=== PATIENT | male | born 1975 | race African-American/Black ===

== ENCOUNTER 2016-11-23 20:56 | Emergency (ER) | payer OTHER ==
[~2016-11-23] VITALS: Ht 182.9 cm; Wt 170.1 kg
[~2016-11-23 20:56] MED LIST: NEXIUM 40MG40 MG PO
--- NOTE | 2016-11-23 21:39 | ED GENERAL ADULT ---
History of Present Illness General Chief Complaint: Dyspnea (COPD, CHF, Other) Stated Complaint: SOB Source: patient, family Exam Limitations: no limitations Vital Signs & Intake/Output Vital Signs & Intake/Output Vital Signs Date Time Temp Pulse Resp B/P Pulse O2 O2 Flow FiO2 Ox Delivery Rate 11/24 0129 97.9 82 18 161/79 98 Room Air 11/23 2309 95 Room Air 11/23 2308 98.0 95 16 156/85 95 Room Air 11/23 2110 97.0 112 20 155/105 95 Room Air ED Intake and Output 11/24 0000 11/23 1200 Intake Total Output Total Balance Patient 375 lb Weight Allergies Coded Allergies: Penicillins (Severe, ANAPHALACTIC 11/23/16) shellfish derived (Severe, HIVES, DIFF BREATHING 11/23/16) Reconcile Medications Esomeprazole (Nexium) 40 MG CAP 1 CAP PO DAILY reflux Triage Note: TRIAGE: PT TO ER C/C "I FELT LIKE I WAS COMING DOWN WITH FEVER Tuesday. AROUND 1 OR 2 AM TUESDAY MORNING MY CHEST WAS REALLY TIGHT AND IT FELT LIKE I WAS ABOUT TO PASS OUT. I WOKE UP ON THE GROUND. I WAS PROBABLY DOWN FOR A COUPLE SECONDS. STARTED TO FEEL BETTER TUESDAY AND TUESDAY BUT TODAY STARTED TO FEEL WEAK" AND FEELING LIKE HE FELT ON TUESDAY SO DECIDED TO COME TO ER. R/A SATS WNL, SPEAKING IN COMPLETE SENTENCES AT TRIAGE. Triage Nurses Notes Reviewed? yes HPI: Patient started on Tuesday feeling like he was coming down with a viral URI. Subjective fevers and chills. Nonproductive cough. Patient then states that he got substernal chest tightness. The tightness lasted a few hours. Patient was sitting at the kitchen table and suddenly felt very tired and put his head down and passed out for 1-2 minutes per his . Patient then got up and was feeling better so went to bed and woke up Tuesday morning feeling fine. Patient felt normal until earlier this afternoon when again he developed chills and subjective fevers and has been having the substernal tightness feeling again. The tightness comes on and will last a few hours and go away on its own. There are no aggravating or mitigating factors. There is no radiation while he has it. Currently the pain is 4 out of 10. Patient denies Shortness of breath. There is no diaphoresis. There is no nausea or vomiting. Past History Travel History Traveled to [place] past 21 day No Medical History Any Pertinent Medical History? see below for history Neurological: NONE EENT: NONE Cardiovascular: NONE Respiratory: NONE Gastrointestinal: peptic ulcer disease Hepatic: NONE Renal: NONE Musculoskeletal: chronic back pain, R TORN MENISCUS Psychiatric: NONE Endocrine: NONE Blood Disorders: NONE Cancer(s): NONE SOAP GRINDER/Reproductive: NONE Other Medical Hx: Obesity Surgical History Surgical History: non-contributory, N Psychosocial History What is your primary language Belarusian Tobacco Use: Current Not Daily Daily Tobacco Use Amount/Type: Cigar or Pipe use daily ETOH Use: occasional use Illicit Drug Use: denies illicit drug use Family History Hx Contributory? No Review of Systems Review of Systems Constitutional: Reports: see HPI, chills, fever. EENTM: Reports: no symptoms. Respiratory: Reports: see HPI, cough. Cardiovascular: Reports: see HPI, chest pain. GI: Reports: no symptoms. Genitourinary: Reports: no symptoms. Musculoskeletal: Reports: no symptoms. Skin: Reports: no symptoms. Neurological/Psychological: Reports: no symptoms. Hematologic/Endocrine: Reports: no symptoms. Immunologic/Allergic: Reports: no symptoms. All Other Systems: Reviewed and Negative Physical Exam Physical Exam General Appearance: well developed/nourished, alert, awake, mild distress Head: atraumatic, normal appearance Eyes: Bilateral: PERRL, EOMI. Ears, Nose, Throat: normal pharynx, normal ENT inspection, hearing grossly normal Neck: normal inspection, supple, full range of motion Respiratory: normal breath sounds, chest non-tender, no respiratory distress, lungs clear Cardiovascular: regular rate/rhythm, normal peripheral pulses Gastrointestinal: normal bowel sounds, soft, non-tender, no organomegaly Back: normal inspection, normal range of motion Extremities: normal inspection, normal capillary refill, normal range of motion, no edema Neurologic/Psych: no motor/sensory deficits, awake, alert, oriented x 3, normal gait, normal mood/affect Skin: intact, normal color, warm/dry Core Measures ACS in differential dx? Yes ASA ordered for poss ACS? Yes-ordered, No-ACS ruled out CVA/TIA Diagnosis: No Severe Sepsis Present: No Septic Shock Present: No Progress Differential Diagnoses I considered the following diagnoses in my evaluation of the patient: [AMI, ELECTROLYTE ABNORMALITY, DYSRRHYTHMIA, INFLUENZA, PE] Plan of Care: Orders Procedure Date/time Status TROPONIN LEVEL 11/24 55 Complete EKG 11/24 55 Active D-DIMER 11/23 2137 Complete Telemetry/Taper Operator 11/23 2125 Active RAPID VIRAL INFLUENZA A 11/23 2125 Complete TROPONIN LEVEL 11/23 2125 Complete COMPREHENSIVE METABOLIC PANEL 11/23 2125 Complete CBC WITHOUT DIFFERENTIAL 11/23 2125 Complete EKG 11/23 2125 Active Laboratory Tests 11/24/16 0111: Troponin I < 0.01 11/23/162149: Anion Gap 10, Estimated GFR > 60, BUN/Creatinine Ratio 13.3, Glucose 125 H, Calcium 9.1, Total Bilirubin 0.5, AST 46, ALT 51, Alkaline Phosphatase 73, Troponin I < 0.01, Total Protein 7.7, Albumin 4.1, Globulin 3.6, Albumin/ Globulin Ratio 1.1, D-Dimer 241 H, CBC w Diff NO MAN DIFF REQ, RBC 4.85, MCV 91.6, MCH 29.6, RDW 14.8 H, MPV 7.9, Gran % 49.4, Lymphocytes % 28.9, Monocytes % 14.4 H, Eosinophils % 6.9 H, Basophils % 0.4, Absolute Granulocytes 2.7, Absolute Lymphocytes 1.6, Absolute Monocytes 0.8 H, Absolute Eosinophils 0.4, Absolute Basophils 0, PUBS MCHC 32.3 L Diagnostic Imaging: Viewed by Me: Radiology Read. Discussed w/RAD: Radiology Read. CXR Impression: PATIENT: JARAD HIDALGO PRESENT AGE: 41 PATIENT ACCOUNT NO: [id number] : 74 LOCATION: [facility] ORDERING PHYSICIAN: SEBAS MEJIA MD SERVICE DATE: 11/23/16 EXAM TYPE: RAD - XRY- PORTABLE CHEST XRAY EXAMINATION: XR PORTABLE CHEST CLINICAL INFORMATION: Cough. COMPARISON: None. TECHNIQUE: Portable view of the chest was obtained. 9:45 PM FINDINGS: No significant abnormality is noted involving the heart, lungs, mediastinum, bony thorax or soft tissues. IMPRESSION: Unremarkable examination. DICTATED BY: RYAN WOLFE MD DATE/TIME DICTATED:11/23/162203 COUNTER CLERK :ROBERT DATE/TIME TRANSCRIBED:11/23/162203 CONFIDENTIAL, DO NOT COPY WITHOUT APPROPRIATE AUTHORIZATION. <Electronically signed in Other Vendor System> SIGNED BY: RYAN WOLFE MD 11/23/16 5838 Initial ED EKG: NSR, nonspecific ST T wave chg Repeat EKG: unchanged Rhythm Strip: normal sinus rhythm Comments: Patient states that prior to passing out on Tuesday he took 100 mg of Benadryl to help with the sinus congestion that he been having. Departure Departure Disposition: HOME OR SELF CARE Condition: Stable Clinical Impression Primary Impression: Chest pain, unspecified Secondary Impressions: Bronchitis Referrals: BETHANIE PERERA MD (PCP/Family) AURE RIVERA,Aniceto PEDERSEN Additional Instructions: RETURN IF SYMPTOMS WORSEN OR FOR ANY CONCERNS Departure Forms: Customer Survey General Discharge Information Critical Care Note Critical Care Note Critical Care Time: non-applicable
[2016-11-23 22:01] LABS: ABSOLUTE BASOPHIL COUNT 0 /CUMM (0.0-0.2); ABSOLUTE EOSINOPHIL COUNT 0.4 /CUMM (0.0-0.7); ABSOLUTE GRANULOCYTE CT 2.7 /CUMM (1.4-6.5); ABSOLUTE LYMPH COUNT 1.6 /CUMM (1.2-3.4); ABSOLUTE MONOCYTE COUNT 0.8 /CUMM (0.10-0.60); BASOPHIL % 0.4 % (0.0-2.0); EOSINOPHIL % 6.9 % (0-5); GRANULOCYTE % 49.4 % (42.2-75.2); HEMATOCRIT 44.4 % (42-52); MEAN CORPUSCULAR HGB 29.6 PG (27.0-31.0); MEAN CORPUSCULAR HGB CONC 32.3 G/DL (33.0-37.0); MEAN CORPUSCULAR VOLUME 91.6 FL (80.0-94.0); MEAN PLATELET VOLUME 7.9 FL (7.4-10.4); PLATELET COUNT 218 /CUMM (130-400); RBC DISTRIBUTION WIDTH 14.8 % (11.5-14.5); RED BLOOD CELL CT 4.85 /CUMM (4.70-6.10); WHITE BLOOD CELL COUNT 5.5 /CUMM (4.8-10.8)
--- NOTE | 2016-11-23 22:08 | RADIOLOGY REPORT ---
EXAMINATION: XR PORTABLE CHEST CLINICAL INFORMATION: Cough. COMPARISON: None. TECHNIQUE: Portable view of the chest was obtained. 9:45 PM FINDINGS: No significant abnormality is noted involving the heart, lungs, mediastinum, bony thorax or soft tissues. IMPRESSION: Unremarkable examination.
[2016-11-24 01:29] VITALS: BP 161/79
[2016-11-24] MEDS ORDERED: NASONEX17 GM NASB (02:11)
[2016-11-24] MEDS ORDERED: ZITHROMAX250 M2 PO (02:11)
== END 2016-11-24 02:22 ==
LOC: ERH 20:56
PROVIDERS: Emergency Medicine
DX: R07.89 Other chest pain (principal); J40 Bronchitis, not specified as acute or chronic; F17.290 Nicotine dependence, other tobacco product, uncomplicated
CPT/HCPCS: 87804; 87804-59; 93005; 93010